=== PATIENT | male | born 1995 | race Caucasian/White ===

== ENCOUNTER 2017-05-05 20:49 | Emergency (ER) | payer OTHER ==
--- NOTE | 2017-05-05 21:13 | ERPHSYRPT ---
- History of Present Illness Time Seen by Provider: 05/05/17 21:08 Historian: patient Exam Limitations: no limitations Patient Subjective Stated Complaint: milena came hoem from work this evening and began having chest pain , became dizzy nauseated and vomitted Triage Nursing Assessment: pt alert nad orietnedx3, pupils perrla2, lung soudns clear, gait is steady patient ambulated to bed with no difficulties, milena skin is flushed and has been sweating profusely at home. Physician History: The patient is a 21-year-old male who began to have nausea and vomiting about 5 hours ago. He vomited twice. Became clammy. Then about an hour ago when he was resting he developed sudden sharp chest pain that doubled him over. He also became dizzy for a few minutes. It lasted about 30 minutes and has completely resolved. He was worried that it might be cardiac in nature as he has no information about his family medical history. He was raised by his grandmother. And his "blood grandfather" was adopted. He has no contact with his parents. He does smoke. His past medical history is otherwise unremarkable. Timing/Duration: today Activities at Onset: none Quality: sharpness Location: central Chest Pain Radiation: no radiation Severity of Pain-Max: severe Severity of Pain-Current: none Modifying Factors: Improves With: nothing Associated Symptoms: nausea, vomiting (4 hrs before the chest pain) Prior Chest Pain/Cardiac Workup: no prior chest pain Nitro Today/Relief: no nitro taken today Aspirin Treatment Today: no aspirin today Allergies/Adverse Reactions: No Known Drug Allergies Allergy (Verified 05/05/17 20:59) Home Medications: No Home Meds 1 [facility] 05/05/17 [History] Hx Tetanus, Diphtheria Vaccination/Date Given: Yes Hx Influenza Vaccination/Date Given: No Hx Pneumococcal Vaccination/Date Given: No Immunizations Up to Date: Yes - Review of Systems Constitutional: No Fever, No Chills Eyes: No Symptoms Ears, Nose, & Throat: No Symptoms Respiratory: No Cough, No Dyspnea Cardiac: Chest Pain Abdominal/Gastrointestinal: Nausea, Vomiting, No Abdominal Pain, No Diarrhea Genitourinary Symptoms: No Dysuria Musculoskeletal: No Back Pain, No Neck Pain Skin: No Rash Neurological: No Dizziness, No Focal Weakness, No Sensory Changes Psychological: No Symptoms Endocrine: No Symptoms Hematologic/Lymphatic: No Symptoms Immunological/Allergic: No Symptoms All Other Systems: Reviewed and Negative - Past Medical History Pertinent Past Medical History: No - Past Surgical History Past Surgical History: Yes Musculoskeletal: Orthopedic Surgery Other Surgical History: shoulder surgery - Social History Smoking Status: Current every day smoker Drug Use: none Patient Lives Alone: No - Nursing Vital Signs Nursing Vital Signs: Initial Vital Signs Pulse Rate [Bilateral Radial] 84 Pulse Rate 84 Respiratory Rate 24 Blood Pressure [Right Arm] 140/76 Pain Intensity 5 - Physical Exam General Appearance: no apparent distress, alert Eye Exam: PERRL/EOMI, eyes nml inspection Ears, Nose, Throat Exam: normal ENT inspection, moist mucous membranes Neck Exam: normal inspection, non-tender, supple, full range of motion Respiratory Exam: normal breath sounds, lungs clear, No respiratory distress Cardiovascular Exam: regular rate/rhythm, normal heart sounds Gastrointestinal/Abdomen Exam: soft, No tenderness, No mass Rectal Exam: not done Back Exam: normal inspection, No CVA tenderness, No vertebral tenderness Extremity Exam: normal inspection, normal range of motion Neurologic Exam: alert, oriented x 3, cooperative, normal mood/affect, sensation nml, No motor deficits Skin Exam: normal color, warm, dry SpO2 Interpretation: normal SpO2: 97 Oxygen Delivery: Room Air - Course EKG Interpreted by Me: RATE, Sinus Rhythm, NORMAL AXIS, NORMAL INTERVALS, NORMAL QRS, NORMAL ST-T - Radiology Exams Chest X-ray Interpretation: Interpreted by me, Negative Ordered Tests: Active Orders 24 hr Category Date Time Status EKG-ER Only STAT Care 05/05/17 21:17 Active IV Insertion STAT Care 05/05/17 21:17 Active CHEST 2 VIEWS (PA AND LAT) Stat Exams 05/05/17 21:18 Taken CBC W DIFF Stat Lab 05/05/17 21:05 Completed CMP Stat Lab 05/05/17 21:05 Completed TROPONIN Stat Lab 05/05/17 21:05 Completed UA W/RFX UR CULTURE Stat Lab 05/05/17 21:25 Completed Urine Triage Profile Stat Lab 05/05/17 21:25 Completed Medication Summary Generic Name Dose Route Start Last Admin Trade Name Freq PRN Reason Stop Dose Admin Sodium Chloride 1,000 mls @ 999 mls/hr 05/05/17 21:17 05/05/17 21:42 Sodium Chloride 0.9% 1000 Ml IV 05/05/17 22:17 999 mls/hr .Q1H1M STA Administration Discontinued Medications Generic Name Dose Route Start Last Admin Trade Name Bud PRN Reason Stop Dose Admin Sodium Chloride Confirm 05/05/17 21:34 Sodium Chloride 0.9% 1000 Ml Administered 05/05/17 21:35 Dose 1,000 mls @ ud .ROUTE .STK-MED ONE Ondansetron HCl 4 mg 05/05/17 21:17 05/05/17 21:43 Zofran 4 Mg/2 Ml Vial IV 05/05/17 21:18 4 mg STAT ONE Administration Ondansetron HCl Confirm 05/05/17 21:34 Zofran 4 Mg/2 Ml Vial Administered 05/05/17 21:35 Dose 4 mg .ROUTE .STK-MED ONE Lab/Rad Data: Laboratory Result Diagrams 05/05/17 21:05 05/05/17 21:05 Laboratory Results 05/05/17 05/05/17 05/05/17 Range/Units 21:25 21:25 21:05 WBC (4.0-10.5) K/mm3 RBC (4.1-5.6) M/mm3 Hgb (12.5-18.0) gm/dl Hct (42-50) % MCV (78-100) fl MCH (26-32) pg MCHC (32-36) g/dl RDW (11.5-14.0) % Plt Count (150-450) K/mm3 MPV (6-9.5) fl Gran % (36.0-66.0) % Lymphocytes % (24.0-44.0) % Monocytes % (0.0-12.0) % Eosinophils % (0.00-5.0) % Basophils % (0.0-0.4) % Basophils # (0-0.4) Sodium 143 (136-145) mEq/L Potassium 3.6 (3.5-5.1) mEq/L Chloride 105 (98-107) mEq/L Carbon Dioxide 26.2 (21-32) mEq/L Anion Gap 15.1 H (5-15) MEQ/L BUN 22 H (9-20) mg/dL Creatinine 1.57 H (0.55-1.30) mg/dl Estimated GFR 58 ML/MIN Glucose 119 H (70-110) MG/DL Calcium 9.7 (8.5-10.1) mg/dL Total Bilirubin 0.30 (0.2-1.0) mg/dL AST 17 (15-37) U/L ALT 31 (12-78) U/L Alkaline Phosphatase 77 (46-116) U/L Troponin I < 0.017 (0.000-0.056) ng/ml Serum Total Protein 7.2 (6.4-8.2) gm/dL Albumin 4.2 (3.4-5.0) g/dL Ur Collection Type CCMS Urine Color YELLOW (YELLOW) Urine Appearance CLEAR (CLEAR) Urine pH 5.0 (5-6) Ur Specific [place] 1.025 (1.005-1.025) Urine Protein NEGATIVE (Negative) Urine Ketones NEGATIVE (NEGATIVE) Urine Blood NEGATIVE (0-5) Efren/ul Urine Nitrite NEGATIVE (NEGATIVE) Urine Bilirubin NEGATIVE (NEGATIVE) Urine Urobilinogen NORMAL (0-1) mg/dL Ur Leukocyte Esterase NEGATIVE (NEGATIVE) Urine Glucose NEGATIVE (NEGATIVE) mg/dL Urine Opiates Level NEG. (NEGATIVE) Ur Methadone NEG. (NEGATIVE) Urine Barbiturates NEG. (NEGATIVE) Ur Phencyclidine (PCP) NEG. (NEGATIVE) Urine Amphetamine NEG. (NEGATIVE) U Benzodiazepine Level NEG. (NEGATIVE) Urine Cocaine NEG. (NEGATIVE) Urine Marijuana (THC) NEG. (NEGATIVE) Specimen Received 05-05-17212405/05/17 Range/Units 21:05 WBC 11.1 H (4.0-10.5) K/mm3 RBC 5.27 (4.1-5.6) M/mm3 Hgb 16.3 (12.5-18.0) gm/dl Hct 46.2 (42-50) % MCV 87.7 (78-100) fl MCH 30.9 (26-32) pg MCHC 35.3 (32-36) g/dl RDW 12.9 (11.5-14.0) % Plt Count 299 (150-450) K/mm3 MPV 9.5 (6-9.5) fl Gran % 57.6 (36.0-66.0) % Lymphocytes % 33.1 (24.0-44.0) % Monocytes % 7.7 (0.0-12.0) % Eosinophils % 1.4 (0.00-5.0) % Basophils % 0.2 (0.0-0.4) % Basophils # 0.02 (0-0.4) Sodium (136-145) mEq/L Potassium (3.5-5.1) mEq/L Chloride (98-107) mEq/L Carbon Dioxide (21-32) mEq/L Anion Gap (5-15) MEQ/L BUN (9-20) mg/dL Creatinine (0.55-1.30) mg/dl Estimated GFR ML/MIN Glucose (70-110) MG/DL Calcium (8.5-10.1) mg/dL Total Bilirubin (0.2-1.0) mg/dL AST (15-37) U/L ALT (12-78) U/L Alkaline Phosphatase (46-116) U/L Troponin I (0.000-0.056) ng/ml Serum Total Protein (6.4-8.2) gm/dL Albumin (3.4-5.0) g/dL Ur Collection Type Urine Color (YELLOW) Urine Appearance (CLEAR) Urine pH (5-6) Ur Specific [place] (1.005-1.025) Urine Protein (Negative) Urine Ketones (NEGATIVE) Urine Blood (0-5) Efren/ul Urine Nitrite (NEGATIVE) Urine Bilirubin (NEGATIVE) Urine Urobilinogen (0-1) mg/dL Ur Leukocyte Esterase (NEGATIVE) Urine Glucose (NEGATIVE) mg/dL Urine Opiates Level (NEGATIVE) Ur Methadone (NEGATIVE) Urine Barbiturates (NEGATIVE) Ur Phencyclidine (PCP) (NEGATIVE) Urine Amphetamine (NEGATIVE) U Benzodiazepine Level (NEGATIVE) Urine Cocaine (NEGATIVE) Urine Marijuana (THC) (NEGATIVE) Specimen Received - Progress Progress: improved Air Movement: good Blood Culture(s) Obtained: No Antibiotics given: No Counseled pt/family regarding: lab results, diagnosis, rad results - Departure Time of Disposition: 22:12 Departure Disposition: Home Clinical Impression: Chest pain, Vomiting Condition: Stable Critical Care Time: No Additional Instructions: You were having vomiting that likely caused reflux that caused the chest pain. You were given Zofran 4 mg IV and fluids by IV in the ER. Your laboratory results and EKG did not show any heart problems. Follow-up with your local doctor.
[2017-05-05] MEDS ORDERED: Sodium Chloride 0.9% 1000 ML 1,000 ML IV STA (21:17)
[2017-05-05] MEDS ORDERED: Zofran 4 MG/2 ML VIAL IV ONE (21:17)
[2017-05-05 21:25] LABS: BASOPHIL % 0.2 % (0.0-0.4); Eosinophil % 1.4 % (0.00-5.0); Granulocytes % 57.6 % (36.0-66.0); Lymphocytes % 33.1 % (24.0-44.0); Mean Cell Volume 87.7 fl (78-100); Mean Corpuscular Hemoglobin 30.9 pg (26-32); Mean Platelet Volume 9.5 fl (6-9.5); Monocytes % 7.7 % (0.0-12.0); Platelet Count 299 K/mm3 (150-450); Red Blood Count 5.27 M/mm3 (4.1-5.6); Red Cell Distribution Width 12.9 % (11.5-14.0); White Blood Count 11.1 K/mm3 (4.0-10.5)
[2017-05-05 21:31] LABS: Collection Type CCMS
[2017-05-05 21:32] LABS: ADD URINE CULTURE? NO (NO); Bilirubin NEGATIVE (NEGATIVE); Blood NEGATIVE Ery/ul (0-5); COMPLETE URINE MICROSCOPIC? NO; Glucose NEGATIVE (NEGATIVE); Leukocyte Esterase NEGATIVE (NEGATIVE)
[2017-05-05] MEDS ORDERED: Zofran 4 MG/2 ML VIAL ONE (21:34)
[2017-05-05] MEDS ORDERED: Sodium Chloride 0.9% 1000 ML 1,000 ML ONE (21:34)
[2017-05-05 21:49] LABS: ALBUMIN 4.2 g/dL (3.4-5.0); ALKALINE PHOSPHATASE 77 U/L (46-116); ANION GAP 15.1 MEQ/L (5-15); BLOOD UREA NITROGEN 22 mg/dL (9-20); CHLORIDE 105 mEq/L (98-107); Carbon Dioxide 26.2 mEq/L (21-32); Glucose 119 MG/DL (70-110); Potassium 3.6 mEq/L (3.5-5.1); SGOT/AST 17 U/L (15-37); SGPT/ALT 31 U/L (12-78); SODIUM 143 mEq/L (136-145); TROPONIN < 0.017 ng/ml (0.000-0.056); Total Protein 7.2 gm/dL (6.4-8.2)
[2017-05-05 22:20] VITALS: BP 129/62; PULSE 75; O2SAT 95
--- NOTE | 2017-05-06 14:49 | XRAY ---
Exam: Two-view chest from 05/05/2017. Comparison: None. Indication: Left sided chest pain 1 hour, no cough or fever. Findings: Upright PA and lateral chest films were obtained. The heart size and contour are normal. The lungs are well expanded. The dominique and mediastinal structures reveal no abnormality. The pulmonary vascularity is within normal limits. The lungs appear clear revealing no infiltrates, pneumothorax, or pleural fluid. The visualized bones appear grossly intact. Slight convexity of the upper thoracic spine toward the left is seen. Impression: 1. No acute cardiopulmonary disease is seen.
== END 2017-05-05 22:27 | disposition home or self-care (01) ==
LOC: ED 20:49
DX: R07.89 Other chest pain (principal); R11.2 Nausea with vomiting, unspecified; R42 Dizziness and giddiness
CPT/HCPCS: 36000; 36415; 71020; 80053; 80307; 81002; 84484; 85025; 93005; 96360; 96374; 99284; 99285; J2405

== ENCOUNTER 2017-09-07 14:11 | Emergency (ER) | payer BC, OTHER ==
[2017-09-07] MEDS ORDERED: Sodium Chloride 0.9% 1000 ML 1,000 ML IV STA (14:22)
[2017-09-07] MEDS ORDERED: BENADRYL 50 MG/ML IV ONE (14:22)
[2017-09-07] MEDS ORDERED: Zofran 4 MG/2 ML VIAL IV ONE (14:22)
[2017-09-07] MEDS ORDERED: MORPHINE SULFATE 10 MG/ML IV ONE (14:22)
[2017-09-07 14:30] LABS: Collection Type CLEAN CATCH
[2017-09-07 14:31] LABS: Bilirubin NEGATIVE (NEGATIVE); Blood NEGATIVE Ery/ul (0-5); COMPLETE URINE MICROSCOPIC? YES; Glucose NEGATIVE (NEGATIVE); Leukocyte Esterase TRACE (NEGATIVE)
[2017-09-07] MEDS ORDERED: MORPHINE SULFATE 10 MG/ML ONE (14:34)
[2017-09-07] MEDS ORDERED: Zofran 4 MG/2 ML VIAL ONE (14:34)
[2017-09-07] MEDS ORDERED: BENADRYL 50 MG/ML ONE (14:34)
[2017-09-07] MEDS ORDERED: Sodium Chloride 0.9% 1000 ML 1,000 ML ONE (14:34)
--- NOTE | 2017-09-07 14:35 | ERPHSYRPT ---
- History of Present Illness Time Seen by Provider: 09/07/17 14:18 Source: patient Patient Subjective Stated Complaint: pt states he has had left flank pain for the past 2 days. states pain radiates to left groin. Triage Nursing Assessment: pt pink, warm, dry. abdomen soft non tender. pt afebrile. Physician History: CC: back pain Hx: Low back and left flank pain for a few days. N/V since last night. Pain worse and into left abdomen. No fever or chills. Feels like urge to urinate and dribbles small amount. No hematuria. Prior remote kidney stone in high school. 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 Pain is severe, sharp in nature. Allergies/Adverse Reactions: No Known Drug Allergies Allergy (Verified 09/07/17 14:22) Home Medications: No Home Meds [No Home Meds] 1 ea UD 05/05/17 [History] Hx Tetanus, Diphtheria Vaccination/Date Given: Yes (up to date) Hx Influenza Vaccination/Date Given: No Hx Pneumococcal Vaccination/Date Given: No Immunizations Up to Date: Yes - Past Medical History Pertinent Past Medical History: No - Past Surgical History Past Surgical History: Yes Musculoskeletal: Orthopedic Surgery Other Surgical History: shoulder surgery - Social History Smoking Status: Current every day smoker How long have you smoked: 6 Exposure to second hand smoke: Yes Drug Use: none Patient Lives Alone: No - Review of Systems Constitutional: No Fever, No Chills Eyes: No Symptoms Ears, Nose, & Throat: No Symptoms Respiratory: Cough (mild), No Dyspnea Cardiac: No Chest Pain Abdominal/Gastrointestinal: Abdominal Pain, Nausea, Vomiting, No Diarrhea Genitourinary Symptoms: Dysuria, Frequency, Hesitancy, Flank Pain, No Hematuria , No Testicle Pain Musculoskeletal: Back Pain Skin: No Rash Neurological: No Focal Weakness, No Parasthesia All Other Systems: Reviewed and Negative - Nursing Vital Signs Nursing Vital Signs: Initial Vital Signs Temperature 97.8 F 09/07/17 14:23 Pulse Rate 73 09/07/17 14:23 Respiratory Rate 18 09/07/17 14:23 Blood Pressure 155/88 09/07/17 14:23 Pain Scale Pain Intensity 5 - Physical Exam General Appearance: alert Eye Exam: PERRL/EOMI Ears, Nose, Throat Exam: normal ENT inspection, moist mucous membranes Neck Exam: normal inspection, non-tender, supple Respiratory Exam: normal breath sounds Cardiovascular Exam: regular rate/rhythm Gastrointestinal/Abdomen Exam: soft, tenderness (left ), No distention, No mass , No guarding Rectal Exam: normal rectal tone, other (prostate mildly tender, not enlarged) Male Genital Exam: no hernia, circumcised, No epididymal tenderness, No testicular tenderness (R), No testicular tenderness (L), No urethral discharge Back Exam: normal inspection, normal range of motion Extremity Exam: normal inspection, normal range of motion Neurologic Exam: alert, oriented x 3, cooperative, sensation nml, No motor deficits Skin Exam: warm, dry, No rash - Course Nursing assessment & vital signs reviewed: Yes - CT Exams abd/pelvis CT Interpretation: Tele-radiologist Report (fecal stasis, no acute intrabdominal , small infiltrate right lung base) Ordered Tests: Active Orders 24 hr Category Date Time Status Clean Catch Urine Specimen STAT Care 09/07/17 14:22 Active IV Insertion STAT Care 09/07/17 14:22 Active NPO (ED) STAT Care 09/07/17 14:22 Active ABDOMEN AND PELVIS W/0 CONTRAS [CT] Stat Exams 09/07/17 14:22 Ordered CBC W DIFF Stat Lab 09/07/17 14:30 Completed CMP Stat Lab 09/07/17 14:30 Completed Manual Differential NC Stat Lab 09/07/17 14:30 Completed UA W/ MICROSCOPIC Stat Lab 09/07/17 14:25 Completed Medication Summary Discontinued Medications Generic Name Dose Route Start Last Admin Trade Name Freq PRN Reason Stop Dose Admin Diphenhydramine HCl 50 mg 09/07/17 14:22 09/07/17 14:38 Benadryl 50 Mg/Ml IV 09/07/17 14:23 50 mg STAT ONE Administration Diphenhydramine HCl Confirm 09/07/17 14:34 Benadryl 50 Mg/Ml Administered 09/07/17 14:35 Dose 50 mg .ROUTE .STK-MED ONE Sodium Chloride 1,000 mls @ 999 mls/hr 09/07/17 14:22 09/07/17 14:43 Sodium Chloride 0.9% 1000 Ml IV 09/07/17 15:22 999 mls/hr .Q1H1M STA Administration Sodium Chloride Confirm 09/07/17 14:34 Sodium Chloride 0.9% 1000 Ml Administered 09/07/17 14:35 Dose 1,000 mls @ ud .ROUTE .STK-MED ONE Levofloxacin 250 mg 09/07/17 16:05 Levofloxacin 250mg Tablet PO 09/07/17 16:06 STAT ONE Levofloxacin 500 mg 09/07/17 16:05 Levofloxacin 500 Mg Tablet PO 09/07/17 16:06 STAT ONE Morphine Sulfate 10 mg 09/07/17 14:22 09/07/17 14:38 Morphine Sulfate 10 Mg/Ml IV 09/07/17 14:23 10 mg STAT ONE Administration Morphine Sulfate Confirm 09/07/17 14:34 Morphine Sulfate 10 Mg/Ml Administered 09/07/17 14:35 Dose 10 mg .ROUTE .STK-MED ONE Morphine Sulfate 4 mg 09/07/17 15:50 09/07/17 16:06 Morphine Sulfate 4 Mg Inj IV 09/07/17 15:51 4 mg STAT ONE Administration Morphine Sulfate Confirm 09/07/17 15:57 Morphine Sulfate 4 Mg Inj Administered 09/07/17 15:58 Dose 4 mg .ROUTE .STK-MED ONE Ondansetron HCl 4 mg 09/07/17 14:22 09/07/17 14:38 Zofran 4 Mg/2 Ml Vial IV 09/07/17 14:23 4 mg STAT ONE Administration Ondansetron HCl Confirm 09/07/17 14:34 Zofran 4 Mg/2 Ml Vial Administered 09/07/17 14:35 Dose 4 mg .ROUTE .STK-MED ONE Lab/Rad Data: Laboratory Result Diagrams 09/07/17 14:30 09/07/17 14:30 Laboratory Results 09/07/17 09/07/17 09/07/17 Range/Units 14:30 14:30 14:25 WBC 10.7 H (4.0-10.5) K/mm3 RBC 5.38 (4.1-5.6) M/mm3 Hgb 16.4 (12.5-18.0) gm/dl Hct 47.3 (42-50) % MCV 87.9 (78-100) fl MCH 30.5 (26-32) pg MCHC 34.7 (32-36) g/dl RDW 13.1 (11.5-14.0) % Plt Count 318 (150-450) K/mm3 MPV 9.5 (6-9.5) fl Sodium 140 (136-145) mEq/L Potassium 3.6 (3.5-5.1) mEq/L Chloride 102 (98-107) mEq/L Carbon Dioxide 27.2 (21-32) mEq/L Anion Gap 14.3 (5-15) MEQ/L BUN 11 (9-20) mg/dL Creatinine 1.02 (0.55-1.30) mg/dl Estimated GFR > 60 ML/MIN Glucose 101 (70-110) MG/DL Calcium 9.3 (8.5-10.1) mg/dL Total Bilirubin 0.50 (0.2-1.0) mg/dL AST 21 (15-37) U/L ALT 51 (12-78) U/L Alkaline Phosphatase 70 (46-116) U/L Serum Total Protein 7.6 (6.4-8.2) gm/dL Albumin 4.3 (3.4-5.0) g/dL Ur Collection Type CLEAN CATCH Urine Color YELLOW (YELLOW) Urine Appearance HAZY (CLEAR) Urine pH 8.0 (5-6) Ur Specific [place] 1.005 (1.005-1.025) Urine Protein NEGATIVE (Negative) Urine Ketones NEGATIVE (NEGATIVE) Urine Blood NEGATIVE (0-5) Efren/ul Urine Nitrite NEGATIVE (NEGATIVE) Urine Bilirubin NEGATIVE (NEGATIVE) Urine Urobilinogen NORMAL (0-1) mg/dL Ur Leukocyte Esterase TRACE (NEGATIVE) Urine Microscopic WBC 0-2 (0-5) /HPF Ur Epithelial Cells FEW (FEW) /HPF Amorphous Crystals MODERATE (NEGATIVE) /HPF Urine Bacteria MODERATE (NEGATIVE) /HPF Urine Mucus SLIGHT (NEGATIVE) /HPF Urine Culture Reflexed NO (NO) Urine Glucose NEGATIVE (NEGATIVE) mg/dL Specimen Received 09-07 1415 - Progress Progress Note: 09/07/17 14:[address] to evaluate for renal stone disease. 09/07/17 16:08 Pt was given morphine. No stone on CT. Does not appear to have back pain from spinal problem. Will Rx levaquin to cover possible pneumonia, prostatitis. Advised primary care follow up this week. Counseled pt/family regarding: lab results, diagnosis, need for follow-up, rad results - Departure Time of Disposition: 16:09 Departure Disposition: Home Clinical Impression: Left flank pain, Right lower lobe pneumonia Condition: Stable Critical Care Time: No Referrals: DOCTOR,NO FAMILY [Primary Care Provider] - Instructions: Pneumonia -- Adult, Low Back Pain Additional Instructions: Rx levaquin. Rx motrin=ibuprofen. Return for worsened or changed abdominal pain, high fever, recurrent vomiting, numbness, tingling, or weakness. Follow up with a primary care provider this week. Prescriptions: Ibuprofen 600 mg PO Q6H PRN PRN #20 tablet PRN Reason: Pain Levofloxacin [Levaquin] 500 mg PO DAILY #10 tablet
[2017-09-07 14:42] LABS: ADD URINE CULTURE? NO (NO); Bacteria MODERATE /HPF (NEGATIVE); Epithelial Cells FEW /HPF (FEW); Mucus SLIGHT /HPF (NEGATIVE); WBC 0-2 /HPF (0-5)
[2017-09-07 14:52] LABS: Mean Cell Volume 87.9 fl (78-100); Mean Corpuscular Hemoglobin 30.5 pg (26-32); Mean Platelet Volume 9.5 fl (6-9.5); Platelet Count 318 K/mm3 (150-450); Red Blood Count 5.38 M/mm3 (4.1-5.6); Red Cell Distribution Width 13.1 % (11.5-14.0); White Blood Count 10.7 K/mm3 (4.0-10.5)
[2017-09-07 15:11] LABS: ALBUMIN 4.3 g/dL (3.4-5.0); ALKALINE PHOSPHATASE 70 U/L (46-116); ANION GAP 14.3 MEQ/L (5-15); BLOOD UREA NITROGEN 11 mg/dL (9-20); CHLORIDE 102 mEq/L (98-107); Carbon Dioxide 27.2 mEq/L (21-32); Glucose 101 MG/DL (70-110); Potassium 3.6 mEq/L (3.5-5.1); SGOT/AST 21 U/L (15-37); SGPT/ALT 51 U/L (12-78); SODIUM 140 mEq/L (136-145); Total Protein 7.6 gm/dL (6.4-8.2)
[2017-09-07 15:32] VITALS: O2SAT 98
[2017-09-07] MEDS ORDERED: MORPHINE SULFATE 4 MG INJ IV ONE (15:50)
[2017-09-07] MEDS ORDERED: MORPHINE SULFATE 4 MG INJ ONE (15:57)
[2017-09-07] MEDS ORDERED: Levofloxacin 500 MG Tablet PO ONE (16:05)
[2017-09-07] MEDS ORDERED: Levofloxacin 250MG Tablet PO ONE (16:05)
[2017-09-07] MEDS ORDERED: Levofloxacin 250MG Tablet ONE (16:08)
[2017-09-07] MEDS ORDERED: Levofloxacin 500 MG Tablet ONE (16:08)
[2017-09-07] MEDS ORDERED: TORAdol 30 mg Injection IV ONE (16:12)
--- NOTE | 2017-09-07 16:15 | XRAY ---
Indication: Left abdomen and low back pain. Fever, nausea, and vomiting. Multiple contiguous axial images obtained through the abdomen and pelvis without contrast as ordered. Comparison: None Lung bases demonstrate small focus of infiltrate versus atelectasis in the right lung base. Heart is not enlarged. Stomach is distended with food. Noncontrasted stomach and bowel loops appear nonobstructed. There is moderate diffuse scattered colonic fecal debris throughout. Cecum demonstrates 2 ovoid intraluminal radiopacities presumed undigested pills. Normal appendix. No free fluid/air. Remaining liver, gallbladder, pancreas, spleen, adrenal glands, kidneys, ureters, bladder, and aorta appear unremarkable for noncontrast exam. 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 Impression: 1. Fecal stasis without obstruction. 2. No acute intra-abdominal/pelvic abnormalities on this noncontrast exam. 3. Small focus of infiltrate/atelectasis in the right lung base. CT DI 23.61
[2017-09-07] MEDS ORDERED: TORAdol 30 mg Injection ONE (16:17)
[2017-09-07 16:47] VITALS: BP 130/74; PULSE 88
[2017-09-07 19:44] LABS: ATYPICAL LYMPHS 13 %; BAND 1 % (0.0-2.0); Eosinophil 1 % (0.00-3.0); Platelet Estimate NORMAL (NORMAL); Total Cells Counted 100
== END 2017-09-07 16:47 | disposition home or self-care (01) ==
LOC: ED 14:11
DX: R10.9 Unspecified abdominal pain (principal); J18.9 Pneumonia, unspecified organism; M54.5 Low back pain; R11.2 Nausea with vomiting, unspecified
CPT/HCPCS: 36000; 36415; 74176; 80053; 81000; 85025; 96360; 96374; 96375; 96376; 99284; J1200; J1885; J2270; J2405; A9270-GY

== ENCOUNTER 2018-07-17 12:43 | Emergency (ER) | payer BC, OTHER, SELFPAY ==
[2018-07-17] MEDS ORDERED: TORAdol 30 mg Injection IM ONE (13:26)
[2018-07-17] MEDS ORDERED: Norflex 60 MG/2 ML IM ONE (13:26)
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
[2018-07-17] MEDS ORDERED: TORAdol 30 mg Injection ONE (13:34)
[2018-07-17] MEDS ORDERED: Norflex 60 MG/2 ML ONE (13:34)
[2018-07-17] MEDS ORDERED: NORCO 5/325 MG PO ONE (14:25)
[2018-07-17] MEDS ORDERED: NORCO 5/325 MG ONE (14:26)
[2018-07-17 15:02] VITALS: BP 123/86; PULSE 72; O2SAT 99
--- NOTE | 2018-07-17 21:19 | XRAY ---
Indication: Low back pain. Comparison: None 3 views of the lumbar spine demonstrates normal alignment with minimal L5-S1 disc space narrowing. No other bony, articular, or soft tissue abnormalities.
== END 2018-07-17 15:02 | disposition home or self-care (01) ==
LOC: ED 12:43
DX: S39.012A Strain of muscle, fascia and tendon of lower back, initial encounter (principal); M54.5 Low back pain
CPT/HCPCS: 72100; 96372; 99284; J1885; J2360; A9270-GY

== ENCOUNTER 2019-03-11 22:29 | Emergency (ER) | payer BC ==
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
[2019-03-11] MEDS ORDERED: solu-MEDROL 125 MG IM ONE (23:08)
[2019-03-11] MEDS ORDERED: PERCOCET TABLET 5/325MG PO STA (23:09)
[2019-03-11] MEDS ORDERED: Ativan 2 MG/1 ML VIAL IM ONE (23:09)
[2019-03-11] MEDS ORDERED: Ativan 2 MG/1 ML VIAL ONE (23:15)
[2019-03-11] MEDS ORDERED: solu-MEDROL 125 MG ONE (23:15)
[2019-03-11] MEDS ORDERED: PERCOCET TABLET 5/325MG ONE (23:15)
[2019-03-11 23:25] VITALS: BP 143/89
[2019-03-11 23:33] VITALS: PULSE 73; O2SAT 95
== END 2019-03-11 23:40 | disposition home or self-care (01) ==
LOC: ED 22:29
DX: M54.2 Cervicalgia (principal)
CPT/HCPCS: 96372; 99284; J2060; J2930; A9270-GY

== ENCOUNTER 2019-11-14 12:54 | Emergency (ER) | payer BC ==
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
[2019-11-14 13:32] LABS: Absolute Neutrophil Ct (ANC) 10.62 (1.4-6.9); BASOPHIL % 0.3 % (0.0-0.4); Basophil (Absolute #) 0.04 (0-0.4); Eosinophil % 0.7 % (0.00-5.0); Eosinophil (Absolute #) 0.11 (0-0.5); Hemoglobin 16.2 gm/dl (12.5-18.0); Lymphocyte (Absolute #) 3.22 (1.0-4.6); Lymphocytes % 21.5 % (24.0-44.0); Mean Cell Volume 89.2 fl (78-100); Mean Corpuscular Hemoglobin 30.7 pg (26-32); Mean Corpuscular Hgb Concent. 34.5 g/dl (32-36); Mean Platelet Volume 9.1 fl (6-9.5); Monocyte (Absolute #) 0.99 (0.0-1.3); Monocytes % 6.6 % (0.0-12.0); Neutrophil % 70.9 % (36.0-66.0); Platelet Count 339 K/mm3 (150-450); Red Blood Count 5.27 M/mm3 (4.1-5.6)
--- NOTE | 2019-11-14 13:32 | XRAY ---
Indication: Chest pain/tightness. Comparison: May 05, 2017. Portable chest again demonstrates normal heart and lungs. Bony thorax intact. No new/acute findings.
[2019-11-14] MEDS ORDERED: BABY ASPIRIN 81 MG CHEW ONE (13:36)
[2019-11-14] MEDS: BABY ASPIRIN 81 MG CHEW PO ONE (13:36)
[2019-11-14 13:58] LABS: ALBUMIN 4.6 g/dL (3.5-5.0); ALKALINE PHOSPHATASE 68 U/L (38-126); ANION GAP 11.9 MEQ/L (5-15); BLOOD UREA NITROGEN 11 mg/dL (9-20); CHLORIDE 105 mmol/L (98-107); Calcium 9.5 mg/dL (8.4-10.2); Carbon Dioxide 25 mmol/L (22-30); Creatinine 1 0.96 mg/dL (0.66-1.25); Glucose 93 mg/dL (74-106); NT PRO BNP 28.6 pg/mL (0-450); Potassium 3.8 mmol/L (3.5-5.1); SGOT/AST 40 U/L (17-59); SGPT/ALT 41 U/L (0-50); SODIUM 138 mmol/L (137-145); Total Protein 7.9 g/dL (6.3-8.2)
[2019-11-14 13:59] LABS: TROPONIN < 0.012 ng/mL (0.000-0.034)
[2019-11-14 14:19] VITALS: BP 125/76; PULSE 75
[2019-11-14] MEDS ORDERED: TORAdol 30 mg Injection ONE (14:24)
[2019-11-14 14:25] VITALS: O2SAT 99
[2019-11-14] MEDS: TORAdol 30 mg Injection IM ONE (14:28)
[2019-11-14 15:34] LABS: CK-Creatinine Phosphokinase 179 U/L (55-170)
== END 2019-11-14 15:02 | disposition home or self-care (01) ==
LOC: ED 12:54
DX: R07.89 Other chest pain (principal); M25.512 Pain in left shoulder; G89.29 Other chronic pain
CPT/HCPCS: 36000; 36415; 71045; 80053; 82550; 83880; 84484; 85025; 85379; 93005; 93041; 96372; 99284; J1885; A9270-GY

== ENCOUNTER 2020-01-13 22:12 | Emergency (ER) | payer BC ==
[2020-01-13 22:25] VITALS: O2SAT 97
[2020-01-13] MEDS ORDERED: TYLENOL EXTRA STRENGTH 500 MG PO STA (23:01)
[2020-01-13] MEDS ORDERED: TYLENOL EXTRA STRENGTH 500 MG ONE (23:03)
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
[2020-01-14 00:42] VITALS: BP 125/82; PULSE 66
--- NOTE | 2020-01-14 08:06 | XRAY ---
Indication: Pain and edema following injury. Comparison: None 3 views of the right ankle demonstrates anterior lateral soft tissue swelling. No other bony, articular, or soft tissue abnormalities.
== END 2020-01-14 00:41 | disposition home or self-care (01) ==
LOC: ED 22:12
DX: S93.401A Sprain of unspecified ligament of right ankle, initial encounter (principal); W18.09XA Striking against other object with subsequent fall, initial encounter; Y93.01 Activity, walking, marching and hiking; Y92.89 Other specified places as the place of occurrence of the external cause
CPT/HCPCS: 73610; 99283; A9270-GY

== ENCOUNTER 2020-03-26 12:22 | Emergency (ER) | payer BC ==
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
[2020-03-26 13:04] LABS: Absolute Neutrophil Ct (ANC) 5.82 (1.4-6.9); BASOPHIL % 0.3 % (0.0-0.4); Basophil (Absolute #) 0.03 (0-0.4); Eosinophil % 2.2 % (0.00-5.0); Eosinophil (Absolute #) 0.22 (0-0.5); Hematocrit 53.3 % (42-50); Hemoglobin 18.3 gm/dl (12.5-18.0); Lymphocyte (Absolute #) 3.14 (1.0-4.6); Lymphocytes % 31.7 % (24.0-44.0); Mean Cell Volume 87.8 fl (78-100); Mean Corpuscular Hemoglobin 30.1 pg (26-32); Mean Corpuscular Hgb Concent. 34.3 g/dl (32-36); Mean Platelet Volume 10.8 fl (7.5-11.0); Monocytes % 7.1 % (0.0-12.0); Neutrophil % 58.7 % (36.0-66.0); Platelet Count 299 K/mm3 (150-450); Red Blood Count 6.07 M/mm3 (4.1-5.6); Red Cell Distribution Width 13.8 % (11.5-14.0); White Blood Count 9.9 K/mm3 (4.0-10.5)
[2020-03-26 13:14] LABS: Appearance SLIGHTLY CLOUDY (CLEAR); Bilirubin NEGATIVE (NEGATIVE); Blood NEGATIVE Ery/ul (0-5); Glucose NEGATIVE (NEGATIVE); Ketones NEGATIVE (NEGATIVE); Leukocyte Esterase NEGATIVE (NEGATIVE); Mucus SLIGHT /HPF (NEGATIVE); Nitrite NEGATIVE (NEGATIVE); Protein,Urine Dip 30 (Negative); Urobilinogen NEGATIVE mg/dL (0-1); WBC 0-2 /HPF (0-5)
[2020-03-26 13:15] LABS: A-aADO2 15; ABG HEMOGLOBIN 17.8; ABG POTASSIUM 4.8 (3.5-5.1); ARTERIAL BLD GAS O2 SATURATION 98.2 % (95-100); ARTERIAL BLOOD GAS BASE EXCESS 5.2 (-2.0-2.0); ARTERIAL BLOOD GAS FIO2 21 %; ARTERIAL BLOOD GAS PCO2 39 mmHg (35-45); ARTERIAL BLOOD GAS PO2 86 mmHg (75-100); ARTERIAL BLOOD GAS pH 7.48 (7.35-7.45); CARBOXYHEMOGLOBIN 3.3 % THgb (0.0-6.9); HGB O2 SAT 94.1 g/dF (94-100); Lactic Acid 1.6 (0.4-2.0); paO2 pAO1 0.85
[2020-03-26 13:16] LABS: ABG SITE LEFT RADIAL; ALLEN TEST OK? yes
[2020-03-26 13:17] LABS: ALBUMIN 4.7 g/dL (3.5-5.0); ALKALINE PHOSPHATASE 69 U/L (38-126); ANION GAP 17.3 MEQ/L (5-15); BLOOD UREA NITROGEN 13 mg/dL (9-20); CHLORIDE 102 mmol/L (98-107); Calcium 10.1 mg/dL (8.4-10.2); Carbon Dioxide 22 mmol/L (22-30); Creatinine 1 0.89 mg/dL (0.66-1.25); Glucose 120 mg/dL (74-106); MAGNESIUM 2.2 mg/dL (1.6-2.3); Potassium 5.1 mmol/L (3.5-5.1); SGOT/AST 31 U/L (17-59); SGPT/ALT 46 U/L (0-50); SODIUM 137 mmol/L (137-145); Total Protein 7.6 g/dL (6.3-8.2)
[2020-03-26 14:07] VITALS: PULSE 76
--- NOTE | 2020-03-26 14:36 | XRAY ---
Indication: COVID 19. Comparison: November 14, 2019. Portable chest now demonstrates subtle left base interstitial opacity. Remaining heart and lungs normal with a few incidental calcified granulomas. Bony thorax intact.
[2020-03-26 15:09] VITALS: BP 124/78; O2SAT 96
== END 2020-03-26 15:09 | disposition home or self-care (01) ==
LOC: ED 12:22
DX: J18.9 Pneumonia, unspecified organism (principal); D75.1 Secondary polycythemia; E87.2 Acidosis; J84.10 Pulmonary fibrosis, unspecified
CPT/HCPCS: 36000; 36415; 36600; 71045; 80053; 81001; 82375; 82803; 83605; 83735; 84484; 85025; 85379; 87040; 93005; 93041; 94760; 99284

== ENCOUNTER 2020-05-31 13:55 | Emergency (ER) | payer SELFPAY ==
[2020-05-31 14:34] VITALS: O2SAT 97
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
[2020-05-31 17:05] VITALS: BP 128/77; PULSE 76
== END 2020-05-31 17:04 | disposition home or self-care (01) ==
LOC: ED 13:55
DX: K64.5 Perianal venous thrombosis (principal); Z79.899 Other long term (current) drug therapy; F17.219 Nicotine dependence, cigarettes, with unspecified nicotine-induced disorders; I10 Essential (primary) hypertension
CPT/HCPCS: 46083; 99283

== ENCOUNTER 2020-06-16 16:14 | Emergency (ER) | payer OTHER ==
[2020-06-16 16:32] VITALS: O2SAT 96
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
[2020-06-16 17:12] VITALS: BP 124/78; PULSE 77
== END 2020-06-16 17:09 | disposition home or self-care (01) ==
LOC: ED 16:14
DX: R42 Dizziness and giddiness (principal); I10 Essential (primary) hypertension; G43.409 Hemiplegic migraine, not intractable, without status migrainosus
CPT/HCPCS: 99283

== ENCOUNTER 2020-09-03 18:21 | Emergency (ER) | payer OTHER ==
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
[2020-09-03 19:06] VITALS: BP 125/85; PULSE 81
[2020-09-03 19:12] VITALS: O2SAT 98
== END 2020-09-03 19:07 | disposition home or self-care (01) ==
LOC: ED 18:21
DX: I10 Essential (primary) hypertension (principal); Z13.9 Encounter for screening, unspecified
CPT/HCPCS: 99283

== ENCOUNTER 2020-10-01 12:19 | Emergency (ER) | payer OTHER ==
[2020-10-01 12:33] VITALS: O2SAT 98
[2020-10-01] MEDS ORDERED: MOTRIN 600 MG PO ONE (13:05)
--- NOTE | 2020-10-01 13:06 | XRAY ---
Indication: Pain following fall. Comparison: None 3 view left ankle demonstrates mild soft tissue swelling and tiny medial malleolus remnant ossification center. No other bony, articular, or soft tissue abnormalities.
--- NOTE | 2020-10-01 13:06 | XRAY ---
Indication: Pain following fall. Comparison: None 3 nonweightbearing views left foot obtained. No bony, articular, or soft tissue abnormalities.
[2020-10-01] MEDS ORDERED: MOTRIN 600 MG ONE (13:07)
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
[2020-10-01 13:23] VITALS: BP 125/83; PULSE 80
== END 2020-10-01 13:23 | disposition home or self-care (01) ==
LOC: ED 12:19
DX: S93.402A Sprain of unspecified ligament of left ankle, initial encounter (principal); S93.602A Unspecified sprain of left foot, initial encounter; X50.1XXA Overexertion from prolonged static or awkward postures, initial encounter; Y93.01 Activity, walking, marching and hiking
CPT/HCPCS: 29515; 73610; 73630; 99284; A9270-GY

== ENCOUNTER 2021-02-15 10:23 | Emergency (ER) | payer OTHER ==
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
[2021-02-15 10:32] VITALS: BP 144/85; PULSE 76; O2SAT 98
[2021-02-15] MEDS ORDERED: solu-MEDROL 125 MG IM ONE (10:43)
[2021-02-15] MEDS ORDERED: Rocephin 1000 MG INJ IM ONE (10:44)
[2021-02-15] MEDS ORDERED: solu-MEDROL 125 MG ONE (10:48)
[2021-02-15] MEDS ORDERED: Rocephin 1000 MG INJ ONE (10:48)
[2021-02-15] MEDS ORDERED: XYLOCAINE 1% HCL 20 ML MDV ONE (10:48)
== END 2021-02-15 11:20 | disposition home or self-care (01) ==
LOC: ED 10:23
DX: J06.9 Acute upper respiratory infection, unspecified (principal)
CPT/HCPCS: 96372; 99283; J0696; J2930

== ENCOUNTER 2021-03-16 12:09 | Emergency (ER) | payer OTHER ==
[2021-03-16] MEDS ORDERED: XYLOCAINE 1% HCL 20 ML MDV IJ ONE (12:10)
[2021-03-16 12:37] LABS: Hematocrit 45.6 % (42-50); Hemoglobin 15.6 gm/dl (12.5-18.0); Mean Cell Volume 89.2 fl (78-100); Mean Corpuscular Hemoglobin 30.5 pg (26-32); Mean Corpuscular Hgb Concent. 34.2 g/dl (32-36); Mean Platelet Volume 9.2 fl (7.5-11.0); Platelet Count 341 K/mm3 (150-450); Red Blood Count 5.11 M/mm3 (4.1-5.6); Red Cell Distribution Width 13.7 % (11.5-14.0); White Blood Count 9.2 K/mm3 (4.0-10.5)
[2021-03-16 12:39] LABS: Appearance CLEAR (CLEAR); Bilirubin NEGATIVE (NEGATIVE); Blood NEGATIVE Ery/ul (0-5); Glucose NEGATIVE (NEGATIVE); Ketones NEGATIVE (NEGATIVE); Leukocyte Esterase SMALL (NEGATIVE); Nitrite NEGATIVE (NEGATIVE); Protein,Urine Dip NEGATIVE (Negative); Specific Gravity 1.016 (1.005-1.025); Urobilinogen NEGATIVE mg/dL (0-1)
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
[2021-03-16 12:50] LABS: ACETAMINOPHEN < 10 ug/ml (10-30); ALBUMIN 4.1 g/dL (3.5-5.0); ALKALINE PHOSPHATASE 72 U/L (38-126); ANION GAP 11.5 MEQ/L (5-15); BLOOD UREA NITROGEN 9 mg/dL (9-20); CHLORIDE 106 mmol/L (98-107); Calcium 9.2 mg/dL (8.4-10.2); Carbon Dioxide 23 mmol/L (22-30); EST GLOMERULAR FILTRATION RATE > 60.0 ML/MIN; ETHYL ALCOHOL < 10 mg/dL (0-10); Glucose 105 mg/dL (74-106); Potassium 3.6 mmol/L (3.5-5.1); SALICYLATE < 1.0 mg/dL (2-20); SGOT/AST 34 U/L (17-59); SGPT/ALT 32 U/L (0-50); SODIUM 137 mmol/L (137-145); Total Protein 6.7 g/dL (6.3-8.2)
[2021-03-16 13:00] LABS: Amphetamine,Urine NEGATIVE (NEGATIVE); Barbiturate,Urine NEGATIVE (NEGATIVE); Benzodiazepine,Urine NEGATIVE (NEGATIVE); Cocaine,Urine NEGATIVE (NEGATIVE); Methadone,Urine NEGATIVE (NEGATIVE); Opiate,Urine NEGATIVE (NEGATIVE); PCP,Urine NEGATIVE (NEGATIVE); THC,Urine NEGATIVE (NEGATIVE)
[2021-03-16 15:06] VITALS: BP 119/92; PULSE 78
[2021-03-16] MEDS ORDERED: Rocephin 500 MG INJ IM ONE (15:26)
[2021-03-16 15:28] LABS: Eosinophil 2 % (0.00-3.0); Lymphocytes 32 % (24-44); Monocyte 5 % (0.0-12.0); Neutrophils 61 % (36.-66.); Platelet Estimate NORMAL (NORMAL); Total Cells Counted 100
[2021-03-16] MEDS ORDERED: Rocephin 1000 MG INJ ONE (15:28)
[2021-03-16 15:29] VITALS: O2SAT 99
[2021-03-16 16:59] LABS: COVID AG -BINAX NOW RAPID TEST NEGATIVE (NEGATIVE)
== END 2021-03-16 17:24 ==
LOC: ED 12:09
DX: R45.851 Suicidal ideations (principal); N39.0 Urinary tract infection, site not specified
CPT/HCPCS: 36415; 80053; 80307; 81001; 84484; 85025; 93005; 96372; 99000; 99285; J0696; G0480

== ENCOUNTER 2021-05-12 18:34 | Emergency (ER) | payer OTHER ==
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
[2021-05-12] MEDS ORDERED: Zofran 4 MG/2 ML VIAL IV ONE (19:48)
[2021-05-12] MEDS ORDERED: Sodium Chloride 0.9% 1000 ML 1,000 ML IV STA (19:48)
[2021-05-12] MEDS ORDERED: Hydromorphone 1 mg/ml Injection IV ONE (19:48)
[2021-05-12 19:49] LABS: Absolute Neutrophil Ct (ANC) 10.53 (1.4-6.9); BASOPHIL % 0.4 % (0.0-0.4); Basophil (Absolute #) 0.06 (0-0.4); Eosinophil % 0.6 % (0.00-5.0); Eosinophil (Absolute #) 0.09 (0-0.5); Hematocrit 44.6 % (42-50); Hemoglobin 15.4 gm/dl (12.5-18.0); Lymphocyte (Absolute #) 3.37 (1.0-4.6); Lymphocytes % 22.2 % (24.0-44.0); Mean Cell Volume 87.8 fl (78-100); Mean Corpuscular Hemoglobin 30.3 pg (26-32); Mean Corpuscular Hgb Concent. 34.5 g/dl (32-36); Mean Platelet Volume 9.2 fl (7.5-11.0); Monocyte (Absolute #) 1.12 (0.0-1.3); Monocytes % 7.4 % (0.0-12.0); Neutrophil % 69.4 % (36.0-66.0); Platelet Count 316 K/mm3 (150-450); Red Blood Count 5.08 M/mm3 (4.1-5.6); Red Cell Distribution Width 13.3 % (11.5-14.0); White Blood Count 15.2 K/mm3 (4.0-10.5)
[2021-05-12] MEDS ORDERED: Zofran 4 MG/2 ML VIAL ONE (19:54)
[2021-05-12] MEDS ORDERED: Sodium Chloride 0.9% 1000 ML 1,000 ML ONE (19:55)
[2021-05-12] MEDS ORDERED: Hydromorphone 1 mg/ml Injection ONE (19:55)
[2021-05-12 20:00] LABS: ALBUMIN 4.7 g/dL (3.5-5.0); ALKALINE PHOSPHATASE 61 U/L (38-126); AMYLASE 49 U/L (30-110); ANION GAP 14.5 MEQ/L (5-15); BLOOD UREA NITROGEN 11 mg/dL (9-20); CHLORIDE 103 mmol/L (98-107); Calcium 9.8 mg/dL (8.4-10.2); Carbon Dioxide 23 mmol/L (22-30); Creatinine 1 0.94 mg/dL (0.66-1.25); EST GLOMERULAR FILTRATION RATE > 60.0 ML/MIN; Glucose 85 mg/dL (74-106); LIPASE 26 U/L (23-300); Potassium 3.8 mmol/L (3.5-5.1); SGOT/AST 31 U/L (17-59); SGPT/ALT 34 U/L (0-50); SODIUM 137 mmol/L (137-145); Total Protein 7.4 g/dL (6.3-8.2)
[2021-05-12 20:34] VITALS: O2SAT 98
[2021-05-12 20:52] LABS: Appearance CLEAR (CLEAR); Bilirubin NEGATIVE (NEGATIVE); Blood NEGATIVE Ery/ul (0-5); Glucose NEGATIVE (NEGATIVE); Ketones NEGATIVE (NEGATIVE); Leukocyte Esterase NEGATIVE (NEGATIVE); Nitrite NEGATIVE (NEGATIVE); Protein,Urine Dip NEGATIVE (Negative); Specific Gravity 1.005 (1.005-1.025); Urobilinogen NEGATIVE mg/dL (0-1)
[2021-05-12 20:53] LABS: RBC 0-2 /HPF (0-2); WBC 0-2 /HPF (0-5)
[2021-05-12 21:10] VITALS: BP 121/76; PULSE 68
--- NOTE | 2021-05-13 08:50 | XRAY ---
Indication: Right upper abdomen pain. Dizziness. Near syncope. Multiple contiguous images obtained through the abdomen and pelvis without contrast. Comparison: September 07, 2017. Lung bases demonstrates minimal dependent atelectasis. No focal infiltrate or effusion. Heart not enlarged. Noncontrasted stomach and bowel loops nonobstructed. Interval appendectomy. No free fluid/air. Mild diffuse fatty hepatomegaly measuring 20 cm. Remaining liver, gallbladder, pancreas, spleen, adrenal glands, kidneys, ureters, bladder, and aorta are unremarkable for noncontrast exam. Osseous structures intact with stable right L5 spondylolysis without spondylolisthesis. No ventral or inguinal hernias. Impression: 1. Fatty hepatomegaly and L5 spondylolysis without spondylolisthesis. 2. Remaining CT abdomen/pelvis without contrast exam is negative.
== END 2021-05-12 21:30 | disposition home or self-care (01) ==
LOC: ED 18:34
DX: R10.9 Unspecified abdominal pain (principal); D72.829 Elevated white blood cell count, unspecified
CPT/HCPCS: 36000; 36415; 74176; 80053; 81001; 82150; 83690; 85025; 87086; 96374; 96375; 99284; J1170; J2405

== ENCOUNTER 2021-05-23 15:23 | Emergency (ER) | payer OTHER ==
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
[2021-05-23 16:32] VITALS: BP 119/84; PULSE 58; O2SAT 96
--- NOTE | 2021-05-23 21:39 | XRAY ---
Indication: Pain. Shoulder "popped out and back in." Comparison: None 3 view left shoulder obtained. Suboptimal scapular Y view due to uncooperative patient. Tiny glenoid process bone cyst. No other bony, articular, or soft tissue abnormalities.
== END 2021-05-23 16:49 | disposition home or self-care (01) ==
LOC: ED 15:23
DX: M25.512 Pain in left shoulder (principal)
CPT/HCPCS: 73030; 99283

== ENCOUNTER 2021-11-13 16:52 | Emergency (ER) | payer OTHER ==
[2021-11-13] MEDS ORDERED: Sodium Chloride 0.9% 1000 ML 1,000 ML IV STA ×2 (17:02→17:58)
[2021-11-13] MEDS ORDERED: Reglan 10 MG/2 ML IV ONE (17:02)
[2021-11-13] MEDS ORDERED: Sodium Chloride 0.9% 1000 ML 1,000 ML ONE ×2 (17:11→18:06)
[2021-11-13] MEDS ORDERED: Reglan 10 MG/2 ML ONE (17:11)
[2021-11-13 17:41] LABS: Appearance CLEAR (CLEAR); Bilirubin NEGATIVE (NEGATIVE); Blood NEGATIVE Ery/ul (0-5); Glucose NEGATIVE (NEGATIVE); Ketones NEGATIVE (NEGATIVE); Leukocyte Esterase NEGATIVE (NEGATIVE); Mucus SLIGHT /HPF (NEGATIVE); Nitrite NEGATIVE (NEGATIVE); Protein,Urine Dip NEGATIVE (Negative); Specific Gravity 1.009 (1.005-1.025); Urobilinogen NEGATIVE mg/dL (0-1)
[2021-11-13 17:55] LABS: Amphetamine,Urine NEGATIVE (NEGATIVE); Barbiturate,Urine NEGATIVE (NEGATIVE); Benzodiazepine,Urine NEGATIVE (NEGATIVE); Cocaine,Urine NEGATIVE (NEGATIVE); Methadone,Urine NEGATIVE (NEGATIVE); Opiate,Urine NEGATIVE (NEGATIVE); PCP,Urine NEGATIVE (NEGATIVE); THC,Urine NEGATIVE (NEGATIVE)
[2021-11-13 18:12] LABS: Absolute Neutrophil Ct (ANC) 7.16 (1.4-6.9); Basophil (Absolute #) 0.02 (0-0.4); Eosinophil (Absolute #) 0.12 (0-0.5); Hematocrit 44.1 % (42-50); Hemoglobin 14.9 gm/dl (12.5-18.0); Lymphocyte (Absolute #) 3.55 (1.0-4.6); Lymphocytes % 30.4 % (24.0-44.0); Mean Cell Volume 88.6 fl (78-100); Mean Corpuscular Hemoglobin 29.9 pg (26-32); Mean Corpuscular Hgb Concent. 33.8 g/dl (32-36); Mean Platelet Volume 9.1 fl (7.5-11.0); Monocyte (Absolute #) 0.84 (0.0-1.3); Monocytes % 7.2 % (0.0-12.0); Neutrophil % 61.2 % (36.0-66.0); Platelet Count 304 K/mm3 (150-450); Red Blood Count 4.98 M/mm3 (4.1-5.6); Red Cell Distribution Width 13.2 % (11.5-14.0); White Blood Count 11.7 K/mm3 (4.0-10.5)
[2021-11-13 18:25] LABS: INR 1.04 (0.8-3.0); PROTIME 12.3 SECONDS (9.4-12.5)
[2021-11-13 18:30] LABS: ALBUMIN 4.1 g/dL (3.5-5.0); ALKALINE PHOSPHATASE 61 U/L (38-126); AMYLASE 50 U/L (30-110); ANION GAP 10.9 MEQ/L (5-15); BLOOD UREA NITROGEN 11 mg/dL (9-20); CHLORIDE 106 mmol/L (98-107); Calcium 9.1 mg/dL (8.4-10.2); Carbon Dioxide 23 mmol/L (22-30); Creatinine 1 0.84 mg/dL (0.66-1.25); EST GLOMERULAR FILTRATION RATE > 60.0 ML/MIN; Glucose 82 mg/dL (74-106); LIPASE 30 U/L (23-300); Potassium 3.7 mmol/L (3.5-5.1); SGOT/AST 27 U/L (17-59); SGPT/ALT 36 U/L (0-50); SODIUM 136 mmol/L (137-145); Total Protein 6.6 g/dL (6.3-8.2)
[2021-11-13 18:48] LABS: D-DIMER QUANTITATIVE < 215 ng/mL (215-500)
[2021-11-13 18:51] LABS: INFLUENZA A NEGATIVE (NEGATIVE); INFLUENZA B NEGATIVE (NEGATIVE); RESPIRATORY SYNCTIAL VIRUS NEGATIVE (Negative); SARS-CoV-2 Xpert Express NEGATIVE (NEGATIVE)
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
[2021-11-13 19:45] VITALS: BP 135/71; PULSE 64; O2SAT 99
--- NOTE | 2021-11-14 09:04 | XRAY ---
Indication: Cough. Short of breath. Comparison: April 10, 2020. Portable chest again demonstrate normal heart, lungs, and bony thorax.
== END 2021-11-13 19:48 | disposition home or self-care (01) ==
LOC: ED 16:52
DX: A08.4 Viral intestinal infection, unspecified (principal); R11.2 Nausea with vomiting, unspecified; R05.9 Cough, unspecified; R19.7 Diarrhea, unspecified; Z20.822 Contact with and (suspected) exposure to COVID-19; R10.84 Generalized abdominal pain; Z72.0 Tobacco use; Z79.899 Other long term (current) drug therapy
CPT/HCPCS: 0241U; 36000; 36415; 71045; 80053; 80307; 81001; 82150; 83605; 83690; 85025; 85379; 85610; 93005; 96374; 99284

== ENCOUNTER 2021-12-18 15:08 | Emergency (ER) | payer OTHER ==
[2021-12-18 15:25] VITALS: BP 147/82
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
[2021-12-18] MEDS ORDERED: Hydromorphone 1 mg/ml Injection IM ONE (15:35)
[2021-12-18] MEDS ORDERED: Compazine 10 MG/2 ML IM ONE (15:35)
[2021-12-18] MEDS ORDERED: Compazine 10 MG/2 ML ONE (15:48)
[2021-12-18] MEDS ORDERED: Hydromorphone 1 mg/ml Injection ONE (15:48)
[2021-12-18 15:59] VITALS: PULSE 90; O2SAT 99
== END 2021-12-18 16:01 | disposition home or self-care (01) ==
LOC: ED 15:08
DX: G43.909 Migraine, unspecified, not intractable, without status migrainosus (principal); R11.2 Nausea with vomiting, unspecified; I10 Essential (primary) hypertension; Z72.0 Tobacco use
CPT/HCPCS: 96372; 99284; J1170

== ENCOUNTER 2022-03-15 18:06 | Emergency (ER) | payer OTHER ==
[2022-03-15 18:16] VITALS: BP 144/88; PULSE 90; O2SAT 97
[2022-03-15] MEDS ORDERED: TORAdol 30 mg Injection IM ONE (18:26)
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
[2022-03-15] MEDS ORDERED: TORAdol 30 mg Injection ONE (18:45)
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
== END 2022-03-15 20:15 | disposition home or self-care (01) ==
LOC: ED 18:06
DX: S83.422A Sprain of lateral collateral ligament of left knee, initial encounter (principal); W51.XXXA Accidental striking against or bumped into by another person, initial encounter; M25.562 Pain in left knee; I10 Essential (primary) hypertension; Z72.0 Tobacco use
CPT/HCPCS: 73562; 96372; 99284; J1885; L1830

== ENCOUNTER 2022-12-09 16:48 | Emergency (ER) | payer OTHER ==
[2022-12-09] MEDS ORDERED: MOTRIN 600 MG PO ONE (17:15)
[2022-12-09] MEDS ORDERED: TYLENOL EXTRA STRENGTH 500 MG PO STA (17:15)
[2022-12-09] MEDS ORDERED: MOTRIN 600 MG ONE (17:20)
[2022-12-09] MEDS ORDERED: TYLENOL EXTRA STRENGTH 500 MG ONE (17:20)
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
[2022-12-09 19:18] VITALS: BP 151/74; PULSE 60; O2SAT 98
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
== END 2022-12-09 19:26 | disposition home or self-care (01) ==
LOC: ED 16:48
DX: S06.0X0A Concussion without loss of consciousness, initial encounter (principal); S20.229A Contusion of unspecified back wall of thorax, initial encounter; S20.219A Contusion of unspecified front wall of thorax, initial encounter; V47.5XXA Car driver injured in collision with fixed or stationary object in traffic accident, initial encounter; R07.9 Chest pain, unspecified; I10 Essential (primary) hypertension; Z79.899 Other long term (current) drug therapy; Z28.310 Unvaccinated for COVID-19; Z72.0 Tobacco use
CPT/HCPCS: 70450; 71046; 72072; 72100; 72125; 99285; A9270-GY